=== PATIENT | male | born 1940 | race Caucasian/White ===

== ENCOUNTER 2018-12-02 08:55 | Day surgery (SDC) | payer MEDICARE, OTHER ==
[~2018-12-02 08:55] MED LIST: Metoclopramide 10 MG/2 ML SDV IV PRN
[2018-12-02] MEDS: Sodium Chloride 0.9% 1,000 ML IV SCH (09:22)
[2018-12-02] MEDS ORDERED: Propofol 1,000 MG/100 ML SDV ONE (13:00)
[2018-12-02] MEDS ORDERED: Midazolam 1 MG/ML 2 ML SDV ONE (13:00)
--- NOTE | 2018-12-02 13:42 | OR ---
DATE OF OPERATION: 12/02/2018 PREOPERATIVE DIAGNOSIS: Personal history of colon polyps. POSTOPERATIVE DIAGNOSIS: Personal history of colon polyps. PROCEDURE: Surveillance colonoscopy with polypectomy. ANESTHESIA: MAC. ESTIMATED BLOOD LOSS: Minimal. COMPLICATIONS: None. INDICATION FOR THE PROCEDURE: The patient is a 78-year-old male who 4 years ago had a surveillance colonoscopy was found to have multiple polyps, was recommended to come back in 3 years. He is now back 4 years later. He otherwise denies any change in bowel habits. DESCRIPTION OF THE PROCEDURE: Informed consent was obtained with the patient. The patient was taken to the operating room and placed on table in the left lateral decubitus position. Monitored anesthesia care was administered. Digital rectal exam performed and was normal. Colonoscope then advanced through the anus, directed towards the cecum. Cecum was reached, identified by appendiceal orifice and ileocecal valve. Colonoscope was slowly withdrawn. He did have a small sessile polyp noted in the ascending colon. This was removed by cold forceps polypectomy. No additional polyps. No masses. No areas of ischemia or inflammation identified. Retroflexion performed in the rectum which was also otherwise unremarkable. Colonoscope then withdrawn. FINDINGS: Ascending colon polyp. RECOMMENDATIONS: We will follow up on pathology. Otherwise, would recommend repeat surveillance colonoscopy in 5 years. ELTON/PHILIP /[id number]
[2018-12-02 14:58] VITALS: BP 111/52
== END 2018-12-02 14:35 | disposition home or self-care (01) ==
LOC: LB.SDS 08:55
PROVIDERS: ATTEND Surgery
DX: Z12.11 Encounter for screening for malignant neoplasm of colon (principal); D12.2 Benign neoplasm of ascending colon; Z86.010 Personal history of colon polyps
CPT/HCPCS: 45380; 88305; J2250; J2704; J7030; G0121

== ENCOUNTER 2024-09-26 09:00 | Emergency (ER) | payer MEDICARE ==
[2024-09-26 10:50] VITALS: BP 179/90; PULSE 79
== END 2024-09-26 11:02 | disposition home or self-care (01) ==
LOC: LB.ED 09:00
DX: B02.9 Zoster without complications (principal); I10 Essential (primary) hypertension; Z88.8 Allergy status to other drugs, medicaments and biological substances; Z79.899 Other long term (current) drug therapy
CPT/HCPCS: 99282